=== PATIENT | female | born 1940 | race Caucasian/White ===

== ENCOUNTER 2016-12-28 16:27 | Emergency (ER) | payer MEDICARE ==
[2016-12-28 16:34] VITALS: BP 117/58
--- NOTE | 2016-12-28 19:53 | RAD ---
INDICATION: Cough. Back pain COMPARISON: Chest x-ray April 13, 2011 TECHNIQUE: PA and lateral dual-energy views were obtained. FINDINGS: Bones/Soft Tissues: There are no acute bony findings. There is osteopenia with kyphosis. Cardiomediastinal: The cardiomediastinal silhouette is normal. Lungs: There is a lingular infiltrate. The remaining lung felipe are clear. There is hyperinflation. Pleura: There are no pleural effusions. Other: None IMPRESSION: LINGULAR INFILTRATE. SUGGEST FOLLOW-UP.
[2016-12-28] MEDS ORDERED: DOXYcycline CAP(*) 100 MG PO ONE (20:10)
--- NOTE | 2016-12-28 21:16 | UC ---
UC General HPI - HPI Summary HPI Summary: TWO DAY HISTORY OF COUGH AND LOW BACK PAIN WITH FEVER 100.7F. NO SORE THROAT. NO ABDOMINAL PAIN. NO DIFFICULTY WITH URINATION. - History of Current Complaint Chief Complaint: UCRespiratory Stated Complaint: BACK PAIN/COUGH Time Seen by Provider: 12/28/16 18:48 Hx Obtained From: Patient, Family/Review Trainer Onset/Duration: Gradual Onset, Lasting Days, Still Present Onset Severity: Moderate Current Severity: Mild Pain Intensity: 0 Associated Signs & Symptoms: Positive: Back Pain, Cough, Fever. Negative: Abdominal Pain, Chest Pain, Dizziness, Diarrhea, Dysuria, Edema, Headache, Nausea, Syncope, SOB, Trauma, Wheezing, Weakness - Allergy/Home Medications Allergies/Adverse Reactions: Allergies Allergy/AdvReac Type Severity Reaction Status Date / Time Bee Venom Allergy Anaphylatic Verified 12/28/16 16:34 Shock Lactose Allergy Hives Verified 12/28/16 16:34 Latex Allergy Itching Verified 12/28/16 16:34 ADHESIVES Allergy Rash Uncoded 12/28/16 16:34 WOOL Allergy Blisters Uncoded 12/28/16 16:34 PMH/Surg Hx/FS Hx/Imm Hx Previously Healthy: Yes - Surgical History Surgical History: Yes Surgery Procedure, Year, and Place: LEFT KNEE, LASIK EYE surgeries, - Family History Known Family History: Positive: Cardiac Disease - Social History Occupation: Retired Lives: With Family Alcohol Use: None Substance Use Type: None Smoking Status (MU): Heavy Every Day Tobacco Smoker Type: Cigarettes Amount Used/How Often: 2+ PPD Length of Time of Smoking/Using Tobacco: SINCE 1971 Have You Smoked in the Last Year: Yes Household Exposure Type: Cigarettes Cessation Counseling: Patient Advised to Stop Review of Systems Constitutional: Fever Skin: Negative Eyes: Negative ENT: Negative Respiratory: Cough Cardiovascular: Negative Gastrointestinal: Negative Genitourinary: Other - LOW BACK PAIN Motor: Negative Neurovascular: Negative Musculoskeletal: Negative Neurological: Negative Psychological: Negative All Other Systems Reviewed And Are Negative: Yes Physical Exam Triage Information Reviewed: Yes Appearance: Well-Appearing, No Pain Distress, Well-Nourished, Thin Vital Signs: Initial Vital Signs Temp 100.7 F 12/28/16 16:30 Pulse 84 12/28/16 16:30 Resp 20 12/28/16 16:30 BP 117/58 12/28/16 16:30 Pulse Ox 96 12/28/16 16:30 Vital Signs Reviewed: Yes Eye Exam: Normal ENT Exam: Normal ENT: Positive: Normal ENT inspection, Hearing grossly normal, Pharynx normal, TMs normal Dental Exam: Normal Neck exam: Normal Neck: Positive: Supple, Nontender, No Lymphadenopathy Respiratory Exam: Other - COUGH Respiratory: Positive: Chest non-tender, Lungs clear, Normal breath sounds, No respiratory distress, No accessory muscle use Cardiovascular Exam: Normal Cardiovascular: Positive: RRR, No Murmur Abdominal Exam: Normal Abdomen Description: Positive: Nontender, No Organomegaly. Negative: CVA Tenderness (R), CVA Tenderness (L) Musculoskeletal Exam: Normal Musculoskeletal: Positive: Strength Intact, ROM Intact, No Edema Neurological Exam: Normal Psychological Exam: Normal Psychological: Positive: Normal Response To Family Skin Exam: Normal Course/Dx - Differential Dx - Multi-Symptom Differential Diagnoses: Metabolic Abnormality, Sepsis, Urinary Tract Infection Provider Diagnoses: LINGULAR INFLITRATE; URINARY TRACT INFECTION Discharge - Discharge Plan Condition: Stable Disposition: HOME Prescriptions: DOXYcycline CAP(*) [DOXYcycline 100MG CAP(*)] 100 mg PO BID #20 cap Patient Education Materials: Urinary Tract Infection in Women (ED), Pneumonia ( ED) Referrals: Alpa CASEY,Kayla Pabon [Primary Care Provider] -
--- NOTE | 2016-12-30 18:22 | UC ---
Progress - Progress Note Progress Note: Pt is on doxycycline which is not a typical urinary antibiotic. However, it can have activity against e coli, and culture results are preliminary. Please contact patient to check on urinary symptoms. If she is improving she should continue the medicine without changes. If she is not improving, an additional antibiotic should be prescribed.
== END 2016-12-28 20:37 | disposition home or self-care (01) ==
LOC: UCEAST 16:27
DX: R91.8 Other nonspecific abnormal finding of lung field (principal); N39.0 Urinary tract infection, site not specified; F17.210 Nicotine dependence, cigarettes, uncomplicated
CPT/HCPCS: 71020; 81003; 87077; 87086; 87186; 99212; A9270-GY; G0463

== ENCOUNTER 2020-09-09 20:16 | Inpatient (IN) ==
[2020-09-09] MEDS ORDERED: Lactated Ringers 1000 ml BAG IV.FLUID IV ONE (20:31)
[2020-09-09 21:11] LABS: ABS Lymphocytes 0.5 10^3/ul (1.0-4.8); ABS Monocytes 0.3 10^3/ul (0-0.8); ABS Neutrophils 9.5 10^3/ul (1.5-7.7); Hematocrit 44 % (35-47); Hemoglobin 14.9 g/dL (12.0-16.0); Lymphocyte % 5.2 %; Mean Corpuscular HGB Conc 34 g/dL (31-36); Mean Corpuscular Hemoglobin 32 pg (27-31); Mean Corpuscular Volume 94 fL (80-97); Mean Platelet Volume 8.4 fL (7.4-10.4); Nucleated Red Blood Cells % 0.1; Platelet Count 174 10^3/uL (150-450); Red Blood Count 4.64 10^6 /uL (3.70-4.87); Red Cell Distribution Width 15 % (10-15); White Blood Count 10.3 10^3/uL (3.5-10.8)
[2020-09-09 21:21] LABS: Activated Partial Thrombo Time 31.1 seconds (26.0-38.0); INR 1.06 (0.82-1.09)
[2020-09-09 21:28] LABS: Albumin/Globulin Ratio 1.2 (1-3); BUN/Creatinine Ratio 20.9 (8-20); C Reactive Protein 2.79 mg/L (<8.01); Calcium 9.5 mg/dL (8.6-10.3); EGFR Non-African American 38.1 (>60); Globulin 3.4 g/dL (2-4); Total Bilirubin 0.8 mg/dL (0.2-1.0); Total Protein 7.4 g/dL (6.4-8.9)
[2020-09-09] MEDS ORDERED: Azithromycin 500 mg/250 ml NS 500 MG/250 ML BAG IVPB ONE (22:24)
[2020-09-09] MEDS ORDERED: cefTRIAXone 1 gm/50 mL NS BAG 1 GM/50 ML BAG IV ONE (22:24)
[2020-09-09 23:16] LABS: Urine Appearance Cloudy; Urine Bilirubin Negative (Negative); Urine Blood Negative (Negative); Urine Color Yellow; Urine Glucose Negative (Negative); Urine Ketones Negative (Negative); Urine Nitrite Negative (Negative); Urine Protein Negative (Negative); Urine Urobilinogen Negative (Negative)
[2020-09-09] MEDS ORDERED: Ondansetron 4 mg VIAL 2 MG/ML 2 ml VIAL IV PRN (23:54)
[2020-09-10 00:48] LABS: Influenza A Molecular Negative (Negative); Influenza B Molecular Negative (Negative)
[2020-09-10] MEDS: Albuterol HFA INHALER 8 gm MDI INH SCH ×7 (03:49→20:29)
[2020-09-10] MEDS: Heparin 5000 UNITS/ML 1 mL VIAL SUBCUT SCH ×3 (05:22→22:28)
[2020-09-10 05:58] LABS: ABS Monocytes 0.4 10^3/ul (0-0.8); ABS Neutrophils 7.6 10^3/ul (1.5-7.7); Hematocrit 41 % (35-47); Hemoglobin 13.7 g/dL (12.0-16.0); Lymphocyte % 10.6 %; Mean Corpuscular HGB Conc 34 g/dL (31-36); Mean Corpuscular Hemoglobin 32 pg (27-31); Mean Corpuscular Volume 95 fL (80-97); Mean Platelet Volume 8.9 fL (7.4-10.4); Platelet Count 152 10^3/uL (150-450); Red Blood Count 4.28 10^6 /uL (3.70-4.87); Red Cell Distribution Width 15 % (10-15)
[2020-09-10 06:15] LABS: BUN/Creatinine Ratio 20.5 (8-20); Calcium 8.9 mg/dL (8.6-10.3); EGFR African American 41.7 (>60); EGFR Non-African American 34.5 (>60); Potassium 4.6 mmol/L (3.5-5.0)
[2020-09-10 06:17] LABS: Troponin I 0.01 ng/mL (<0.03)
[2020-09-10] MEDS: Mometasone/Formoter 200/5 MDI INH SCH ×2 (07:16→20:29)
[2020-09-10] MEDS: Aspirin EC 81 mg TAB.EC (enteric coated) PO SCH (07:32)
[2020-09-10] MEDS ORDERED: NS 0.9% 1000 ml BAG 1,000 ML IV ONE (11:13)
[2020-09-10] MEDS ORDERED: NS 0.9% 500 ml BAG 500 ML IV ONE (12:20)
[2020-09-10] MEDS ORDERED: Magnesium Sulfate IV 1GM/100ML 1 GM/100 ML BAG IV ONE (12:44)
[2020-09-10] MEDS ORDERED: NS 0.9% 1000 ml BAG 1,000 ML IV SCH (12:45)
[2020-09-10 13:08] LABS: Magnesium 1.5 mg/dL (1.9-2.7)
[2020-09-10] MEDS ORDERED: Magnesium Sulfate IV 3 GM in NS 0.9% 100 ml BAG 100 ML IVPB ONE (19:00)
[2020-09-10] MEDS: Azithromycin 500 mg/250 ml NS 500 MG/250 ML BAG IVPB SCH (22:20)
[2020-09-10] MEDS: cefTRIAXone 1 gm/50 mL NS BAG 1 GM/50 ML BAG IVPB SCH (23:28)
[2020-09-11] MEDS ORDERED: methylPREDNISolone 125 mg 2 ML VIAL IV SCH (00:30)
[2020-09-11] MEDS: methylPREDNISolone 125 mg 2 ML VIAL IV SCH ×2 (00:43→12:19)
[2020-09-11] MEDS: Albuterol HFA INHALER 8 gm MDI INH SCH ×4 (01:01→19:51)
[2020-09-11 05:07] LABS: ABS Lymphocytes 0.6 10^3/ul (1.0-4.8); ABS Monocytes 0.5 10^3/ul (0-0.8); Hematocrit 36 % (35-47); Hemoglobin 11.9 g/dL (12.0-16.0); Lymphocyte % 4.3 %; Mean Corpuscular HGB Conc 33 g/dL (31-36); Mean Corpuscular Hemoglobin 32 pg (27-31); Mean Corpuscular Volume 95 fL (80-97); Platelet Count 141 10^3/uL (150-450); Red Blood Count 3.76 10^6 /uL (3.70-4.87); Red Cell Distribution Width 15 % (10-15); White Blood Count 15.1 10^3/uL (3.5-10.8)
[2020-09-11 05:28] LABS: BUN/Creatinine Ratio 23.2 (8-20); Calcium 8.1 mg/dL (8.6-10.3); EGFR African American 44.5 (>60); EGFR Non-African American 36.8 (>60); Magnesium 2.6 mg/dL (1.9-2.7); Potassium 4.6 mmol/L (3.5-5.0)
[2020-09-11] MEDS: Heparin 5000 UNITS/ML 1 mL VIAL SUBCUT SCH ×3 (06:25→21:33)
[2020-09-11] MEDS: Mometasone/Formoter 200/5 MDI INH SCH ×2 (07:14→19:51)
[2020-09-11] MEDS: Aspirin EC 81 mg TAB.EC (enteric coated) PO SCH (09:55)
[2020-09-11] MEDS: Nicotine GUM 4MG FRUIT FLAVOR PO PRN ×3 (09:57→16:22)
[2020-09-11] MEDS: Azithromycin 500 mg/250 ml NS 500 MG/250 ML BAG IVPB SCH (21:33)
[2020-09-11] MEDS: cefTRIAXone 1 gm/50 mL NS BAG 1 GM/50 ML BAG IVPB SCH (23:16)
[2020-09-12] MEDS: Albuterol HFA INHALER 8 gm MDI INH SCH ×3 (01:02→12:07)
[2020-09-12] MEDS: Nicotine GUM 4MG FRUIT FLAVOR PO PRN ×3 (04:05→12:30)
[2020-09-12] MEDS: Heparin 5000 UNITS/ML 1 mL VIAL SUBCUT SCH ×2 (05:46→14:32)
[2020-09-12 06:31] LABS: ABS Monocytes 0.8 10^3/ul (0-0.8); Hematocrit 35 % (35-47); Hemoglobin 11.7 g/dL (12.0-16.0); Lymphocyte % 6.9 %; Mean Corpuscular HGB Conc 34 g/dL (31-36); Mean Corpuscular Hemoglobin 32 pg (27-31); Mean Corpuscular Volume 95 fL (80-97); Mean Platelet Volume 8.6 fL (7.4-10.4); Platelet Count 155 10^3/uL (150-450); Red Blood Count 3.69 10^6 /uL (3.70-4.87); Red Cell Distribution Width 15 % (10-15); White Blood Count 14.8 10^3/uL (3.5-10.8)
[2020-09-12 06:47] LABS: BUN/Creatinine Ratio 24.8 (8-20); Calcium 8.8 mg/dL (8.6-10.3); EGFR African American 49.9 (>60); EGFR Non-African American 41.2 (>60); Magnesium 2.2 mg/dL (1.9-2.7); Potassium 4.2 mmol/L (3.5-5.0)
[2020-09-12] MEDS: Mometasone/Formoter 200/5 MDI INH SCH (07:54)
[2020-09-12] MEDS: Aspirin EC 81 mg TAB.EC (enteric coated) PO SCH (09:16)
[2020-09-12] MEDS ORDERED: Albuterol HFA INHALER 8 gm MDI INH PRN (12:08)
[2020-09-12 14:19] VITALS: BP 139/60
== END 2020-09-12 17:00 | disposition home or self-care (01) | DRG 871 ==
LOC: ED 20:16 → MED 09-10 02:03
PROVIDERS: ADMIT Internal Medicine; ATTEND Pediatrics

== ENCOUNTER 2021-10-12 05:48 | Inpatient (IN) ==
[2021-10-12] MEDS ORDERED: Lactated Ringers 1000 ml BAG IV.FLUID IV ONE (06:14)
[2021-10-12] MEDS ORDERED: Piperacillin/Tazobac ADVAN 3.375 GM in NS 0.9% 100 ml BAG 100 ML IV ONE (06:36)
[2021-10-12 06:38] LABS: ABS Lymphocytes 0.5 10^3/ul (1.0-4.8); ABS Monocytes 1.4 10^3/ul (0-0.8); ABS Neutrophils 19.1 10^3/ul (1.5-7.7); Hematocrit 34 % (35-47); Hemoglobin 11.5 g/dL (12.0-16.0); Lymphocyte % 2.6 %; Mean Corpuscular HGB Conc 34 g/dL (31-36); Mean Corpuscular Hemoglobin 32 pg (27-31); Mean Corpuscular Volume 94 fL (80-97); Mean Platelet Volume 8.1 fL (7.4-10.4); Platelet Count 145 10^3/uL (150-450); Red Blood Count 3.64 10^6 /uL (3.70-4.87); Red Cell Distribution Width 15 % (10-15); White Blood Count 21.1 10^3/uL (3.5-10.8)
[2021-10-12] MEDS ORDERED: Lactated Ringers 1000 ml BAG 1,000 ML IV ONE (06:38)
[2021-10-12] MEDS ORDERED: Vancomycin 750 MG in NS 0.9% 250 ml 250 ML IVPB ONE (07:00)
[2021-10-12 07:14] LABS: Activated Partial Thrombo Time 31.7 seconds (26.0-38.0); INR 1.27 (0.86-1.15)
[2021-10-12 07:33] LABS: Albumin 3.4 g/dL (3.2-5.2); Albumin/Globulin Ratio 1.5 (1-3); Calcium 8.3 mg/dL (8.6-10.3); Globulin 2.3 g/dL (2-4); Magnesium 1.6 mg/dL (1.9-2.7); Potassium 3.8 mmol/L (3.5-5.0); Total Bilirubin 0.8 mg/dL (0.2-1.0); Total Protein 5.7 g/dL (6.4-8.9); eGFR CKD-EPI 29.7 (>60)
[2021-10-12] MEDS ORDERED: Norepinephrine 16MCG/ML BAG NS 4,000 MCG/250 ML BAG IV SCH (08:00)
[2021-10-12 08:10] LABS: High Sensitivity Troponin 1 Hr 683 pg/mL (<15)
[2021-10-12 09:14] LABS: Urine Appearance Cloudy; Urine Bilirubin Negative (Negative); Urine Blood 2+ (Negative); Urine Color Yellow; Urine Glucose Negative (Negative); Urine Ketones Negative (Negative); Urine Nitrite Positive (Negative); Urine Protein Negative (Negative); Urine Specific Gravity 1.011 (1.002-1.030); Urine Urobilinogen Negative (Negative)
[2021-10-12 09:23] LABS: Urine Bacteria 1+ (Absent); Urine Red Blood Cell Trace(0-2/hpf) (Absent); Urine White Blood Cell Trace(0-5/hpf) (Absent)
[2021-10-12] MEDS ORDERED: Ondansetron 4 mg VIAL 2 MG/ML 2 ml VIAL IV PRN (09:52)
[2021-10-12] MEDS ORDERED: Albuterol HFA INHALER 8 gm MDI INH PRN (09:57)
[2021-10-12] MEDS ORDERED: Enoxaparin 30 MG/0.3 ML SYR SUBCUT SCH (10:00)
[2021-10-12] MEDS ORDERED: Linezolid 600 MG IVPREMIX(*) 600 MG/300 ML BAG IVPB SCH (10:00)
[2021-10-12] MEDS ORDERED: Zosyn per Pharmacy NOTE FOLLOW UP SCH (10:00)
[2021-10-12 10:44] LABS: T4, Total 9.16 mcg/dL (6.09-12.23)
[2021-10-12] MEDS ORDERED: Lactated Ringers 1000 ml BAG 1,000 ML IV SCH (11:00)
[2021-10-12] MEDS ORDERED: DOXYcycline 100 MG in NS 0.9% 250 ml 250 ML IVPB SCH (12:00)
[2021-10-12] MEDS ORDERED: Ondansetron 4 mg VIAL 2 MG/ML 2 ml VIAL ONE (13:06)
[2021-10-12] MEDS ORDERED: Rocuronium 50 mg VIAL 10 mg/ml 5 ml VIAL (50 mg) ONE (13:06)
[2021-10-12] MEDS ORDERED: Dexamethasone IV 4 MG/ML VIAL 1 ml VIAL ONE (13:06)
[2021-10-12] MEDS ORDERED: Etomidate 20 mg/10 ml 2 MG/ML 10 ml VIAL ONE (13:06)
[2021-10-12] MEDS ORDERED: Midazolam 2 mg/2 ml VIAL 1 mg/ml 2 ml VIAL (2 mg) ONE (13:08)
[2021-10-12] MEDS ORDERED: fentaNYL 100 mcg/2 ml 50 MCG/ML VIAL ONE ×2 (13:08→15:49)
[2021-10-12] MEDS ORDERED: Phenylephrine IV 10 MG/ML 1 ml VIAL ONE (13:46)
[2021-10-12] MEDS ORDERED: Bupivacaine 0.25% w/EPI 10 ML SDV ONE (13:51)
[2021-10-12] MEDS ORDERED: EPHEDrine (Pressors) 50 MG/ML VIAL ONE (13:55)
[2021-10-12] MEDS ORDERED: Magnesium Sulfate 2 gm BAG 2 GM/50 ML BAG IVPB ONE (15:09)
[2021-10-12] MEDS ORDERED: Atropine 1 MG/ML INJ 1 ML VIAL ONE (15:09)
[2021-10-12] MEDS: ZOSYN 3.375 GM Q12H per EXTENDED INFUSION IV SCH ×3 (15:25→15:59)
[2021-10-12] MEDS: DOXYcycline 100 MG in NS 0.9% 250 ml 250 ML IVPB SCH (15:39)
[2021-10-12] MEDS ORDERED: HYDROmorphone 1 MG/1 ML SYRINGE ONE (15:49)
[2021-10-12] MEDS ORDERED: Naloxone 0.4 mg VIAL 0.4 mg/ml 1 ml VIAL IV PRN (15:55)
[2021-10-12] MEDS ORDERED: Metoclopramide 5 MG/ML VIAL (10 mg) IV PRN (15:55)
[2021-10-12] MEDS ORDERED: fentaNYL 100 mcg/2 ml 50 MCG/ML VIAL IV PRN (15:55)
[2021-10-12] MEDS: HYDROmorphone 1 MG/1 ML SYRINGE IV PRN ×2 (16:11→16:38)
[2021-10-12] MEDS: Linezolid 600 MG IVPREMIX(*) 600 MG/300 ML BAG IVPB SCH (17:18)
[2021-10-12] MEDS: Acetaminophen IV 1 GM/100ML 100 ML IV PRN (18:18)
[2021-10-12] MEDS ORDERED: Morphine 2 MG/ML SYRINGE IV PRN (18:25)
[2021-10-13] MEDS: Acetaminophen IV 1 GM/100ML 100 ML IV PRN ×3 (00:01→16:28)
[2021-10-13] MEDS: ZOSYN 3.375 GM Q12H per EXTENDED INFUSION IV SCH ×2 (02:18→16:28)
[2021-10-13] MEDS: Linezolid 600 MG IVPREMIX(*) 600 MG/300 ML BAG IVPB SCH (04:00)
[2021-10-13] MEDS: DOXYcycline 100 MG in NS 0.9% 250 ml 250 ML IVPB SCH (04:32)
[2021-10-13 04:56] LABS: ABS Lymphocytes 1.9 10^3/ul (1.0-4.8); ABS Monocytes 1.1 10^3/ul (0-0.8); ABS Neutrophils 17.6 10^3/ul (1.5-7.7); Hematocrit 35 % (35-47); Hemoglobin 11.5 g/dL (12.0-16.0); Mean Corpuscular HGB Conc 33 g/dL (31-36); Mean Corpuscular Hemoglobin 31 pg (27-31); Mean Corpuscular Volume 95 fL (80-97); Mean Platelet Volume 9.9 fL (7.4-10.4); Platelet Count 179 10^3/uL (150-450); Red Blood Count 3.68 10^6 /uL (3.70-4.87); Red Cell Distribution Width 16 % (10-15); White Blood Count 20.7 10^3/uL (3.5-10.8)
[2021-10-13 05:27] LABS: Albumin 2.8 g/dL (3.2-5.2); Albumin/Globulin Ratio 1.3 (1-3); C Reactive Protein 100.61 mg/L (<8.01); Calcium 7.9 mg/dL (8.6-10.3); Globulin 2.2 g/dL (2-4); Magnesium 2.1 mg/dL (1.9-2.7); Phosphorus 4.1 mg/dL (2.5-5.0); Potassium 4.4 mmol/L (3.5-5.0); Total Bilirubin 0.5 mg/dL (0.2-1.0); eGFR CKD-EPI 42.9 (>60)
[2021-10-13] MEDS: Morphine 2 MG/ML SYRINGE IV PRN ×3 (08:33→18:07)
[2021-10-13] MEDS ORDERED: Iodixanol (CONTRAST) 320 MG/ML 100 ML SDV IV ONE (08:47)
[2021-10-13] MEDS ORDERED: Flu vaccine *QUAD* 2021-22* 0.5 ML SYRINGE IM ONE (09:00)
[2021-10-13] MEDS: SPIRIVA Respimat (tiotropium) 2.5 mcg/inh Inhaler INH SCH (10:29)
[2021-10-13] MEDS: Enoxaparin 30 MG/0.3 ML SYR SUBCUT SCH (12:42)
[2021-10-13] MEDS ORDERED: Morphine 2 MG/ML SYRINGE IV ONE (14:14)
[2021-10-13] MEDS: Pantoprazole VIAL 40 MG VIAL IV SCH (14:25)
[2021-10-14] MEDS: Acetaminophen IV 1 GM/100ML 100 ML IV PRN (00:36)
[2021-10-14] MEDS: Morphine 2 MG/ML SYRINGE IV PRN ×6 (01:03→21:00)
[2021-10-14] MEDS: ZOSYN 3.375 GM Q12H per EXTENDED INFUSION IV SCH ×2 (05:23→17:41)
[2021-10-14] MEDS: SPIRIVA Respimat (tiotropium) 2.5 mcg/inh Inhaler INH SCH (07:22)
[2021-10-14 09:08] LABS: ABS Eosinophils 0.1 10^3/ul (0-0.6); ABS Lymphocytes 1.8 10^3/ul (1.0-4.8); ABS Monocytes 0.7 10^3/ul (0-0.8); ABS Neutrophils 10.5 10^3/ul (1.5-7.7); Eosinophil % 0.4 %; Hematocrit 36 % (35-47); Lymphocyte % 13.7 %; Mean Corpuscular HGB Conc 33 g/dL (31-36); Mean Corpuscular Hemoglobin 31 pg (27-31); Mean Corpuscular Volume 95 fL (80-97); Mean Platelet Volume 8.5 fL (7.4-10.4); Platelet Count 173 10^3/uL (150-450); Red Blood Count 3.82 10^6 /uL (3.70-4.87); Red Cell Distribution Width 16 % (10-15); White Blood Count 13.1 10^3/uL (3.5-10.8)
[2021-10-14 09:49] LABS: Albumin 2.8 g/dL (3.2-5.2); Albumin/Globulin Ratio 1.2 (1-3); Globulin 2.4 g/dL (2-4); Magnesium 1.9 mg/dL (1.9-2.7); Potassium 3.9 mmol/L (3.5-5.0); Total Bilirubin 0.5 mg/dL (0.2-1.0); Total Protein 5.2 g/dL (6.4-8.9); eGFR CKD-EPI 40.9 (>60)
[2021-10-14] MEDS: Pantoprazole VIAL 40 MG VIAL IV SCH (13:08)
[2021-10-14] MEDS: Enoxaparin 30 MG/0.3 ML SYR SUBCUT SCH (13:08)
[2021-10-14 16:10] LABS: ABS Lymphocytes 1.7 10^3/ul (1.0-4.8); ABS Monocytes 0.7 10^3/ul (0-0.8); ABS Neutrophils 8.2 10^3/ul (1.5-7.7); Eosinophil % 0.3 %; Hematocrit 37 % (35-47); Hemoglobin 12.5 g/dL (12.0-16.0); Lymphocyte % 15.7 %; Mean Corpuscular HGB Conc 34 g/dL (31-36); Mean Corpuscular Hemoglobin 32 pg (27-31); Mean Corpuscular Volume 95 fL (80-97); Mean Platelet Volume 8.7 fL (7.4-10.4); Platelet Count 166 10^3/uL (150-450); Red Blood Count 3.92 10^6 /uL (3.70-4.87); Red Cell Distribution Width 15 % (10-15); White Blood Count 10.6 10^3/uL (3.5-10.8)
[2021-10-14 16:38] LABS: ALT 29 U/L (7-52); Albumin/Globulin Ratio 1.3 (1-3); Alkaline Phosphatase 70 U/L (35-149); Blood Urea Nitrogen 25 mg/dL (6-24); C Reactive Protein 67.35 mg/L (<8.01); CO2 Carbon Dioxide 25 mmol/L (22-32); Calcium 7.8 mg/dL (8.6-10.3); Globulin 2.3 g/dL (2-4); Glucose 104 mg/dL (70-100); Sodium 141 mmol/L (135-145); Total Protein 5.3 g/dL (6.4-8.9); eGFR CKD-EPI 40.6 (>60)
[2021-10-14 16:40] LABS: Chloride 112 mmol/L (101-111)
[2021-10-14 16:42] LABS: Anion Gap 4 mmol/L (2-11)
[2021-10-14] MEDS ORDERED: Iodixanol (CONTRAST) 320 MG/ML 100 ML SDV IV ONE (17:13)
[2021-10-14] MEDS: Heparin 5000 UNITS/ML 1 mL VIAL SUBCUT SCH (23:48)
[2021-10-15] MEDS: Morphine 2 MG/ML SYRINGE IV PRN ×2 (01:15→11:46)
[2021-10-15] MEDS: ZOSYN 3.375 GM Q12H per EXTENDED INFUSION IV SCH ×3 (04:43→20:26)
[2021-10-15 05:06] LABS: ABS Basophils 0.1 10^3/ul (0-0.2); ABS Eosinophils 0.1 10^3/ul (0-0.6); ABS Lymphocytes 1.7 10^3/ul (1.0-4.8); ABS Monocytes 0.6 10^3/ul (0-0.8); ABS Neutrophils 5.7 10^3/ul (1.5-7.7); Eosinophil % 0.6 %; Hematocrit 34 % (35-47); Hemoglobin 11.5 g/dL (12.0-16.0); Lymphocyte % 20.6 %; Mean Corpuscular HGB Conc 34 g/dL (31-36); Mean Corpuscular Hemoglobin 32 pg (27-31); Mean Corpuscular Volume 95 fL (80-97); Mean Platelet Volume 8.4 fL (7.4-10.4); Platelet Count 155 10^3/uL (150-450); Red Blood Count 3.64 10^6 /uL (3.70-4.87); Red Cell Distribution Width 15 % (10-15); White Blood Count 8.1 10^3/uL (3.5-10.8)
[2021-10-15 05:47] LABS: Calcium 8.1 mg/dL (8.6-10.3); Magnesium 1.8 mg/dL (1.9-2.7); Phosphorus 3.4 mg/dL (2.5-5.0); Potassium 3.9 mmol/L (3.5-5.0); eGFR CKD-EPI 47.9 (>60)
[2021-10-15] MEDS: Heparin 5000 UNITS/ML 1 mL VIAL SUBCUT SCH ×3 (06:39→22:01)
[2021-10-15] MEDS ORDERED: Potassium Chloride LIQUID 20 MEQ/15 ML LIQUID PO ONE (07:21)
[2021-10-15] MEDS ORDERED: Magnesium Sulfate 2 gm BAG 2 GM/50 ML BAG IVPB ONE (07:21)
[2021-10-15] MEDS: SPIRIVA Respimat (tiotropium) 2.5 mcg/inh Inhaler INH SCH (11:07)
[2021-10-15] MEDS: Pantoprazole VIAL 40 MG VIAL IV SCH (13:44)
[2021-10-15] MEDS: HYDROcodone/ACETAMIN 5/325 mg TAB PO PRN (15:04)
[2021-10-15 15:19] LABS: QuantiferonTb Gold Plus Result Negative (Negative)
[2021-10-16] MEDS: ZOSYN 3.375 GM Q12H per EXTENDED INFUSION IV SCH ×3 (04:13→20:35)
[2021-10-16] MEDS: Heparin 5000 UNITS/ML 1 mL VIAL SUBCUT SCH ×3 (06:01→22:50)
[2021-10-16 06:47] LABS: ABS Eosinophils 0.1 10^3/ul (0-0.6); ABS Lymphocytes 1.5 10^3/ul (1.0-4.8); ABS Monocytes 0.6 10^3/ul (0-0.8); ABS Neutrophils 4.9 10^3/ul (1.5-7.7); Eosinophil % 1.6 %; Hematocrit 34 % (35-47); Hemoglobin 11.4 g/dL (12.0-16.0); Lymphocyte % 21.6 %; Mean Corpuscular HGB Conc 34 g/dL (31-36); Mean Corpuscular Hemoglobin 32 pg (27-31); Mean Corpuscular Volume 94 fL (80-97); Mean Platelet Volume 8.2 fL (7.4-10.4); Platelet Count 173 10^3/uL (150-450); Red Blood Count 3.58 10^6 /uL (3.70-4.87); Red Cell Distribution Width 15 % (10-15); White Blood Count 7.1 10^3/uL (3.5-10.8)
[2021-10-16 07:21] LABS: Potassium 3.9 mmol/L (3.5-5.0); eGFR CKD-EPI 46.9 (>60)
[2021-10-16] MEDS: SPIRIVA Respimat (tiotropium) 2.5 mcg/inh Inhaler INH SCH (10:01)
[2021-10-16] MEDS: HYDROcodone/ACETAMIN 5/325 mg TAB PO PRN (11:52)
[2021-10-16] MEDS: Pantoprazole VIAL 40 MG VIAL IV SCH (13:11)
[2021-10-17] MEDS: ZOSYN 3.375 GM Q12H per EXTENDED INFUSION IV SCH ×3 (04:12→20:22)
[2021-10-17] MEDS: HYDROcodone/ACETAMIN 5/325 mg TAB PO PRN ×2 (06:10→20:25)
[2021-10-17] MEDS: Heparin 5000 UNITS/ML 1 mL VIAL SUBCUT SCH ×3 (06:12→23:39)
[2021-10-17 06:46] LABS: ABS Basophils 0.1 10^3/ul (0-0.2); ABS Eosinophils 0.2 10^3/ul (0-0.6); ABS Lymphocytes 1.9 10^3/ul (1.0-4.8); ABS Monocytes 0.6 10^3/ul (0-0.8); ABS Neutrophils 4.7 10^3/ul (1.5-7.7); Eosinophil % 2.3 %; Hematocrit 36 % (35-47); Hemoglobin 12.3 g/dL (12.0-16.0); Lymphocyte % 25.4 %; Mean Corpuscular HGB Conc 34 g/dL (31-36); Mean Corpuscular Hemoglobin 32 pg (27-31); Mean Corpuscular Volume 94 fL (80-97); Mean Platelet Volume 8.3 fL (7.4-10.4); Platelet Count 207 10^3/uL (150-450); Red Blood Count 3.87 10^6 /uL (3.70-4.87); Red Cell Distribution Width 15 % (10-15); White Blood Count 7.5 10^3/uL (3.5-10.8)
[2021-10-17 07:15] LABS: C Reactive Protein 17.98 mg/L (<8.01); Calcium 8.5 mg/dL (8.6-10.3); Potassium 3.8 mmol/L (3.5-5.0); eGFR CKD-EPI 44.6 (>60)
[2021-10-17] MEDS: SPIRIVA Respimat (tiotropium) 2.5 mcg/inh Inhaler INH SCH (08:15)
[2021-10-17] MEDS: Pantoprazole VIAL 40 MG VIAL IV SCH (13:27)
[2021-10-18] MEDS: ZOSYN 3.375 GM Q12H per EXTENDED INFUSION IV SCH ×3 (05:08→20:15)
[2021-10-18] MEDS: Heparin 5000 UNITS/ML 1 mL VIAL SUBCUT SCH ×3 (05:08→23:57)
[2021-10-18] MEDS: HYDROcodone/ACETAMIN 5/325 mg TAB PO PRN ×2 (05:12→11:22)
[2021-10-18] MEDS: SPIRIVA Respimat (tiotropium) 2.5 mcg/inh Inhaler INH SCH (08:33)
[2021-10-18] MEDS: Pantoprazole VIAL 40 MG VIAL IV SCH (13:40)
[2021-10-19] MEDS: HYDROcodone/ACETAMIN 5/325 mg TAB PO PRN ×3 (01:21→15:00)
[2021-10-19] MEDS: Heparin 5000 UNITS/ML 1 mL VIAL SUBCUT SCH ×2 (06:18→14:47)
[2021-10-19] MEDS: SPIRIVA Respimat (tiotropium) 2.5 mcg/inh Inhaler INH SCH (09:00)
[2021-10-19 12:01] VITALS: BP 160/55
[2021-10-19] MEDS: Pantoprazole VIAL 40 MG VIAL IV SCH (14:47)
== END 2021-10-19 15:55 | disposition home or self-care (01) | DRG 853 ==
LOC: ED 05:48 → SUATTDRO 10:15 → EDHOLD 10:15 → ICU 10:23 → SSU 10-15 11:27
PROVIDERS: ADMIT Internal Medicine; ATTEND Internal Medicine